=== PATIENT | female | born 1950 | race Caucasian/White ===

== ENCOUNTER 2018-10-22 09:44 | Day surgery (SDC) | payer OTHER ==
[~2018-10-22 09:44] MED LIST: PROPOFOL 200 MG INJ
[2018-10-22] MEDS ORDERED: LIDOCAINE 100 MG SYRINGE (11:09)
[2018-10-22] MEDS ORDERED: PROPOFOL 40 ML (11:10)
[2018-10-22] MEDS ORDERED: OXYCODONE/ACETAMINOPHEN (5/325) TAB PO ×2 (11:30)
[2018-10-22] MEDS ORDERED: TRIMETHOBENZAMIDE 100 MG/ML VIAL IM (11:30)
[2018-10-22] MEDS ORDERED: hydrALAzine 20 MG INJ IV (11:30)
[2018-10-22] MEDS ORDERED: IPRATROPIUM (NEB) 0.5 MG/2.5 ML AMP HHN (11:30)
[2018-10-22] MEDS ORDERED: MIDAZOLAM 1 MG/ML 2 ML INJ IV (11:30)
[2018-10-22] MEDS ORDERED: MEPERIDINE 25 MG INJ IV (11:30)
[2018-10-22] MEDS ORDERED: ONDANSETRON 4 MG INJ IV (11:30)
[2018-10-22] MEDS ORDERED: ALBUTEROL 0.083% (NEB) 2.5 MG/3 ML AMP HHN (11:30)
[2018-10-22] MEDS ORDERED: DIPHENHYDRAMINE 50 MG INJ IV (11:30)
[2018-10-22] MEDS ORDERED: EPHEDrine SULFATE 50 MG/5 ML SYG IV (11:30)
[2018-10-22] MEDS ORDERED: FENTAnyl 50 MCG/ML VIAL IV ×3 (11:30)
[2018-10-22] MEDS ORDERED: APIXABAN 5 MG TABLET PO (11:30)
[2018-10-22] MEDS ORDERED: LABETALOL HCL 20MG INJ IV (11:30)
[2018-10-22] MEDS ORDERED: HYDROmorphONE 1 MG/5 ML IV SYRINGE IV ×3 (11:30)
== END 2018-10-22 12:30 | disposition home or self-care (01) ==
LOC: CCL 09:44 → SDS 09:44 → CCL 12:30
DX: I48.91 Unspecified atrial fibrillation (principal); I10 Essential (primary) hypertension; E11.9 Type 2 diabetes mellitus without complications
CPT/HCPCS: 82962; 92960; 93005

== ENCOUNTER 2019-04-02 20:07 | Emergency (ER) | payer OTHER, MEDICARE | END 2019-04-03 00:47 | disposition home or self-care (01) | LOC: FTE 04-03 00:47 | DX: S92.352A Displaced fracture of fifth metatarsal bone, left foot, initial encounter for closed fracture (principal); I10 Essential (primary) hypertension; W18.30XA Fall on same level, unspecified, initial encounter; Y92.9 Unspecified place or not applicable; Z79.84 Long term (current) use of oral hypoglycemic drugs | CPT/HCPCS: 73610; 73630-LT; 99283-25 ==